=== PATIENT | female | born 2000 | race Native Hawaiian/Other Pacific Islander ===

== ENCOUNTER 2022-03-09 21:01 | Emergency (ER) | payer OTHER ==
--- NOTE | 2022-03-09 21:09 | ERPHSYRPT ---
- History of Present Illness Time Seen by Provider: 03/09/22 21:08 Source: patient, family - Departure Referrals: ANDRES LICONA TEST [employer]LE DRILLER [Primary Care Provider] - Follow up/PCP as directed
--- NOTE | 2022-03-09 21:33 | ERPHSYRPT ---
- History of Present Illness Time Seen by Provider: 03/09/22 21:08 Source: patient Exam Limitations: no limitations Physician History: This is an overweight 21-year-old female who has had 3-day history of sore throat, fever and gagging up thick phlegm to the degree of vomiting. She presents with a fever 101.2 F. She has had decreased oral intake. She denies chest pain. She denies abdominal pain Timing/Duration: day(s) (3) Fever Severity: moderate Fever Therapy EDUCATION AND OUTREACH COORDINATOR: none Associated Symptoms: cough, muscle aches, nausea/vomiting, sore throat Allergies/Adverse Reactions: iodine Allergy (Verified 03/09/22 21:32) pollen extracts Allergy (Verified 03/09/22 21:33) Home Medications: Loratadine 10 mg [Claritin 10 mg] 10 mg PO DAILY 03/09/22 [History] Travel Risk - International Travel Have you traveled outside of the country in past 3 weeks: No - Coronavirus Screening Are you exhibiting any of the following symptoms?: Yes Symptoms: Fever, Cough: New Onset, Vomiting/Diarrhea, Headaches/Body Aches/Fatigue Close contact with a COVID-19 positive Pt in past 14-21 Days: No - Review of Systems Constitutional: Fever Eyes: No Symptoms Ears, Nose, & Throat: Throat Pain Respiratory: Cough Cardiac: No Symptoms Abdominal/Gastrointestinal: Nausea, Vomiting, No Abdominal Pain, No Diarrhea, No Constipation Genitourinary Symptoms: No Symptoms Musculoskeletal: No Symptoms Skin: No Symptoms Neurological: No Symptoms Psychological: No Symptoms Endocrine: No Symptoms Hematologic/Lymphatic: No Symptoms Immunological/Allergic: No Symptoms All Other Systems: Reviewed and Negative - Past Medical History Pertinent Past Medical History: No - Past Surgical History Past Surgical History: Yes - Nursing Vital Signs Nursing Vital Signs: Initial Vital Signs Temperature 101.2 F 03/09/22 21:53 Pulse Rate 123 H 03/09/22 21:53 Respiratory Rate 18 03/09/22 21:53 O2 Sat by Pulse Oximetry 96 03/09/22 21:53 Pain Scale Pain Intensity 6 - Physical Exam General Appearance: no apparent distress, alert, anxiety, obese Eye Exam: PERRL/EOMI, eyes nml inspection ENT Exam: no apparent trauma, hearing grossly normal, pharynx normal, airway intact Neck Exam: normal inspection, non-tender, supple, full range of motion, trachea midline Respiratory Exam: normal breath sounds, lungs clear, no respiratory distress, no accessory muscle use, No chest non-tender, No respiratory distress Cardiovascular/Chest Exam: tachycardia Gastrointestinal/Abdominal Exam: soft, non tender Pelvic Exam: not done Rectal Exam: not done Extremity Exam: non-tender, normal range of motion, normal inspection Neurologic Exam: alert, oriented x 3, cooperative, 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, normal mood/affect, nml cerebellar function, nml station & gait, sensation nml Skin Exam: normal color, warm, dry Lymphatic: No adenopathy SpO2 Interpretation: normal O2 Delivery: Room Air - Course Nursing assessment & vital signs reviewed: Yes Ordered Tests: Active Orders 24 hr Category Date Time Status IV Insertion STAT Care 03/09/22 22:19 Active Pulse Oximetry (ED) STAT Care 03/09/22 22:19 Active CHEST 1 VIEW (PORTABLE) Stat Exams 03/09/22 22:20 Taken BLOOD CULTURE Stat Lab 03/09/22 22:20 Ordered CULTURE,URINE Stat Lab 03/09/22 22:36 Received HCG,QUALITATIVE URINE Stat Lab 03/09/22 22:36 Completed UA W/RFX CULTURE Stat Lab 03/09/22 22:36 Completed Medication Summary Generic Name Dose Route Start Last Admin Trade Name Freq PRN Reason Stop Dose Admin Ondansetron HCl 4 mg 03/09/22 22:20 Ondansetron Hcl 4 Mg/2 Ml Vial IV 04/08/22 22:19 Q6H PRN PRN NAUSEA/VOMITING Discontinued Medications Generic Name Dose Route Start Last Admin Trade Name Freq PRN Reason Stop Dose Admin Hydrocodone Bitart/Acetaminophen 10 ml 03/09/22 22:20 03/09/22 22:38 Hydrocodone/Acetaminophen 5 Ml Udcup PO 03/09/22 22:21 10 ml STAT STA Administration Hydrocodone Bitart/Acetaminophen Confirm 03/09/22 22:37 Hydrocodone/Acetaminophen 5 Ml Udcup Administered 03/09/22 22:38 Dose 5 ml .ROUTE .STK-MED ONE Hydrocodone Bitart/Acetaminophen Confirm 03/09/22 22:39 Hydrocodone/Acetaminophen 5 Ml Udcup Administered 03/09/22 22:40 Dose 5 ml .ROUTE .STK-MED ONE Sodium Chloride 1,000 mls @ 999 mls/hr 03/09/22 22:19 03/09/22 22:41 Sodium Chloride 0.9% 1000 Ml IV 03/09/22 23:19 Not Given .Q1H1M STA Ibuprofen 600 mg 03/09/22 22:19 03/09/22 22:52 Ibuprofen 600 Mg Tablet PO 03/09/22 22:20 600 mg STAT STA Administration Ibuprofen Confirm 03/09/22 22:36 Ibuprofen 600 Mg Tablet Administered 03/09/22 22:37 Dose 600 mg .ROUTE .STK-MED ONE Ondansetron HCl 4 mg 03/09/22 21:35 03/09/22 21:47 Zofran 4 Mg/Udtablet Orally Disintegrating PO 03/09/22 21:36 4 mg STAT ONE Administration Ondansetron HCl Confirm 03/09/22 21:46 Zofran 4 Mg/Udtablet Orally Disintegrating Administered 03/09/22 21:47 Dose 4 mg .ROUTE .STK-MED ONE Lab/Rad Data: Laboratory Results 03/09/22 03/09/22 03/09/22 Range/Units 22:36 22:36 21:51 Urinalys Dipstick Clnc MAIN LAB Urine Color KASIA (YELLOW) Urine Appearance CLOUDY A (CLEAR) Urine pH 5.5 (5-6) Ur Specific [place] >=1.030 A (1.005-1.025) POC Urine Protein Conf 100 A (Negative) Urine Ketones SMALL-15 A (NEGATIVE) Urine Nitrite NEGATIVE (NEGATIVE) Urine Bilirubin LARGE A (NEGATIVE) Urine Urobilinogen >=8.0 A (0-1) mg/dL Urine Leukocytes SMALL A (NEGATIVE) Urine WBC (Auto) 51-100 A (0-5) /HPF Urine RBC (Auto) >101 A (0-2) /HPF U Hyaline Cast (Auto) 3-5 A (0-2) /LPF U Epithel Cells (Auto) RARE (FEW) /HPF Urine Bacteria (Auto) RARE (NEGATIVE) /HPF Urine RBC LARGE A (0-5) Sandeep/ul Urine Mucus (Auto) SLIGHT A (NEGATIVE) /HPF Ur Culture Indicated? YES Urine Glucose 100 A (NEGATIVE) mg/dL Urine HCG, Qual NEGATIVE (Negative) Influenza Type A Ag NEGATIVE (NEGATIVE) Influenza Type B Ag NEGATIVE (NEGATIVE) RSV (PCR) NEGATIVE (Negative) SARS-CoV-2 (PCR) NEGATIVE (NEGATIVE) Group A Strep Antibody NOT DETECTED (NEGATIVE) - Progress Progress: unchanged Progress Note: 03/09/22 22:40 Patient is refusing IV placement. In addition she is refusing blood work. She is aware, as we discussed with her, that we cannot provide her with a complete work-up unless we are able to obtain blood work. She is refusing blood draws and refusing placement of an IV. Patient is told that she needed to sign a refusal of blood draw and other necessary work-up. She understands the risks of not having this work-up completed. She also understands the benefits of having the work-up completed. She will sign the refusal of blood draw and IV placement. 03/09/22 23:14 Medical decision making: This patient has a urinary tract infection that is significant. Patient is in need of IV placement and IV fluids. However even after we provide the patient with ibuprofen and hydrocodone/acetaminophen elixir, the patient vomited but still does not want an IV placed. 03/09/22 23:26 Patient refusing IM Rocephin. She wants to take antibiotic pill. She understands that she might vomit this medication up and not obtain any benefit from it. What she is wanting is antibiotic pills as a prescription as well as Zofran antiemetic medication prescription sent to her pharmacy. There is recommended that the patient does not leave until she has intravenous fluids and parenteral antibiotics. Patient is refusing and I will have her sign out AGAINST MEDICAL ADVICE. 03/09/22 23:28 Counseled pt/family regarding: lab results, diagnosis, need for follow-up, rad results - Departure Departure Disposition: AMA Clinical Impression: UTI (urinary tract infection), Dehydration Condition: Stable Critical Care Time: No Referrals: ANDRES LICONA NP [Primary Care Provider] - Follow up/PCP as directed Additional Instructions: Drink plenty of fluids. Take your medication as prescribed. Return to the emergency department if symptoms worsen. Prescriptions: Ondansetron ODT 4 MG [Zofran Odt 4 mg] 4 mg PO Q6H PRN PRN #10 tablet PRN Reason: Vomiting Smz/Tmp Ds Tablet [Bactrim Ds Tablet] 1 udtab PO BID #14 tablet
[2022-03-09] MEDS ORDERED: ZOFRAN ODT 4 MG PO ONE (21:35)
[2022-03-09] MEDS ORDERED: ZOFRAN ODT 4 MG ONE (21:46)
[2022-03-09 22:19] LABS: Group A Strep NOT DETECTED (NEGATIVE)
[2022-03-09] MEDS ORDERED: Sodium Chloride 0.9% 1000 ML 1,000 ML IV STA (22:19)
[2022-03-09] MEDS ORDERED: MOTRIN 600 MG PO STA (22:19)
[2022-03-09] MEDS ORDERED: HYDROCODONE-ACETAMIN 2.5-108/5 ML SOLUTION PO STA (22:20)
[2022-03-09] MEDS ORDERED: Zofran 4 MG/2 ML VIAL IV PRN (22:20)
[2022-03-09 22:30] VITALS: BP 134/108
[2022-03-09 22:32] LABS: INFLUENZA A NEGATIVE (NEGATIVE); INFLUENZA B NEGATIVE (NEGATIVE); RESPIRATORY SYNCTIAL VIRUS NEGATIVE (Negative); SARS-CoV-2 Xpert Express NEGATIVE (NEGATIVE)
[2022-03-09] MEDS ORDERED: MOTRIN 600 MG ONE (22:36)
[2022-03-09] MEDS ORDERED: HYDROCODONE-ACETAMIN 2.5-108/5 ML SOLUTION ONE ×2 (22:37→22:39)
[2022-03-09 22:44] LABS: Appearance CLOUDY (CLEAR); Bilirubin LARGE (NEGATIVE); Dipstick done @ ? MAIN LAB; Glucose 100 mg/dL (NEGATIVE); Ketones SMALL-15 (NEGATIVE); Nitrite NEGATIVE (NEGATIVE); Ph 5.5 (5-6); Protein,Urine Dip 100 (Negative); RBC LARGE Ery/ul (0-5); Specific Gravity >=1.030 (1.005-1.025); Urobilinogen >=8.0 mg/dL (0-1)
[2022-03-09 22:46] LABS: Bacteria RARE /HPF (NEGATIVE); Epithelial Cells RARE /HPF (FEW); Mucus SLIGHT /HPF (NEGATIVE); RBC >101 /HPF (0-2); Urine Cultured Indicated? YES; WBC 51-100 /HPF (0-5)
[2022-03-09 23:03] VITALS: PULSE 65; O2SAT 95
[2022-03-09] MEDS ORDERED: BACTRIM DS TABLET PO ONE ×2 (23:26→23:33)
--- NOTE | 2022-03-10 08:40 | XRAY ---
Indication: Fever, cough, vomiting, sore throat. Comparison: None Portable chest demonstrates normal heart, lungs, and bony thorax.
== END 2022-03-09 23:45 | disposition left against medical advice (07) ==
LOC: ED 21:01
DX: N39.0 Urinary tract infection, site not specified (principal); E86.0 Dehydration; R50.9 Fever, unspecified; J02.9 Acute pharyngitis, unspecified
CPT/HCPCS: 0241U; 71045; 81015; 81025; 87086; 87651; 94760; 99283; Q0162; A9270-GY